=== PATIENT | female | born 1980 | race Caucasian/White ===

== ENCOUNTER 2017-09-24 20:00 | Emergency (ER) | payer BC, OTHER ==
[2017-09-24 20:16] VITALS: BP 144/84
--- NOTE | 2017-09-24 20:31 | UC ---
Lower Extremity/Ankle HPI - HPI Summary HPI Summary: Pt presents with left foot pain x 2-3weeks. No specific injury. Her pain is located at the base of her pinky toe. She tells me that she has a known benign bone growth on her ankle, but that was never painful. Denies numbness, tingling , redness, swelling, or injury. - History of Current Complaint Chief Complaint: UCLowerExtremity Stated Complaint: FOOT PAIN Time Seen by Provider: 09/24/17 20:20 Hx Obtained From: Patient Hx Last Menstrual Period: 09/03/17 Onset/Duration: Gradual Onset Severity Initially: Moderate Severity Currently: Moderate Pain Intensity: 6 Pain Scale Used: 0-10 Numeric Aggravating Factor(s): Standing, Ambulation Alleviating Factor(s): Rest - Allergies/Home Medications Allergies/Adverse Reactions: Allergies Allergy/AdvReac Type Severity Reaction Status Date / Time Sulfa (Sulfonamide Allergy Severe Anaphylatic Verified 09/24/17 20:16 Antibiotics) Shock Home Medications: Home Medications metroNIDAZOLE TAB* [Flagyl 250 mg TAB*] PO BID 09/24/17 [History] PMH/Surg Hx/FS Hx/Imm Hx Previously Healthy: Yes Other History Of: Negative For: HIV, Hepatitis B, Hepatitis C, Anticoagulant Therapy - Surgical History Surgical History: None - Family History Known Family History: Positive: Diabetes, Blood Disorder Negative: Cardiac Disease, Hypertension Family History: Blood clots in grandmother - Social History Occupation: Unemployed Lives: Alone Alcohol Use: None Substance Use Type: None Smoking Status (MU): Current Every Day Smoker Amount Used/How Often: 1 PPD Review of Systems Constitutional: Negative Skin: Negative Respiratory: Negative Cardiovascular: Negative Motor: Negative Neurovascular: Negative Musculoskeletal: Other: - LEft foot pain Neurological: Negative Psychological: Negative All Other Systems Reviewed And Are Negative: Yes Physical Exam Triage Information Reviewed: Yes Appearance: Well-Appearing, No Pain Distress, Well-Nourished Vital Signs: Initial Vital Signs Temp 98.5 F 09/24/17 20:13 Pulse 89 09/24/17 20:13 Resp 16 09/24/17 20:13 BP 144/84 09/24/17 20:13 Pulse Ox 100 09/24/17 20:13 Vital Signs Reviewed: Yes Neck: Positive: Supple, Nontender Respiratory: Positive: Lungs clear, Normal breath sounds, No respiratory distress Cardiovascular: Positive: RRR, No Murmur, Pulses Normal - Left DP and TP Musculoskeletal: Positive: Strength Intact - Left foot and all toes, ROM Intact - Left foot and all toes, No Edema - Left foot and all toes, Other: - Moderate TTP over left 5th MTP. Neurological: Positive: Alert, Other: - Sensations intact left foot and all toes. Psychological: Positive: Age Appropriate Behavior Skin: Negative: rashes Lower Extremity Course/Dx - Course Course Of Treatment: XR: IMPRESSION: Noted sessile morphology osteochondroma at the posterior distal metaphysis of. the fibula could potentially irritate the peroneal brevis tendon and account for symptoms. at level of the base of the fifth metatarsal. Correlate with clinical assessment. Advised to RICE and f /u with Orthopedics for further evaluation and treatment. - Differential Dx/Diagnosis Provider Diagnoses: Left foot pain Discharge - Discharge Plan Condition: Stable Disposition: HOME Patient Education Materials: Benign Bone Tumor (DC) Referrals: No Primary Care Phys,NOPCP [Primary Care Provider] - Harry Wright MD [Medical Doctor] - As Soon As Possible Additional Instructions: If you develop a fever, shortness of breath, chest pain, new or worsening symptoms - please call your PCP or go to the ED. Your blood pressure was high at todays visit. Please see your primary provider within 4 weeks for recheck and re-evaluation.
--- NOTE | 2017-09-24 20:45 | RAD ---
Indication: Pain at the base of the fifth metatarsal for one month without preceding injury. Comparison: No relevant prior exams available on the [facility] [place]. Technique: AP, lateral, and oblique views LEFT foot. Report: Negative for fracture, radiographic findings of stress reaction, or articular malalignment. Negative for significant arthropathic change. Small bone island at the distal diaphysis metaphysis junction of the fifth metatarsal. No abnormality at the base of the fifth metatarsal evident. 1.2 cm cephalocaudal sessile morphology osteochondroma at the posterior distal metaphysis of the fibula. Unremarkable soft tissue contours. IMPRESSION: Noted sessile morphology osteochondroma at the posterior distal metaphysis of the fibula could potentially irritate the peroneal brevis tendon and account for symptoms at level of the base of the fifth metatarsal. Correlate with clinical assessment.
== END 2017-09-24 21:25 | disposition home or self-care (01) ==
LOC: UCEAST 20:00
DX: M79.672 Pain in left foot (principal); Z88.2 Allergy status to sulfonamides; F17.210 Nicotine dependence, cigarettes, uncomplicated
CPT/HCPCS: 99212; G0463

== ENCOUNTER 2017-11-05 11:03 | Day surgery (SDC) | payer OTHER ==
[~2017-11-05 11:03] MED LIST: Acetaminophen IV 1GM/100ML * 1,000 MG/100 ML VIAL IVPB ONE; Buffered Lidocaine 0.9% SYRIN* 5 ML/SYR SYRINGE INTRADERM ONE; Dexamethasone IV* 4 MG/ML 1 ML (4 MG) IV SLOW PU ONE; Famotidine TAB* 20 MG PO ONE
[2017-11-05] MEDS ORDERED: Famotidine TAB* 20 MG ONE (11:06)
[2017-11-05] MEDS ORDERED: Dexamethasone IV* 4 MG/ML 1 ML (4 MG) ONE (11:06)
[2017-11-05] MEDS ORDERED: Buffered Lidocaine 0.9% SYRIN* 5 ML/SYR SYRINGE ONE (11:06)
[2017-11-05] MEDS ORDERED: ceFAZolin 2 GM PREMIX (*) 2 GM/50 ML BAG IVPB ONE (11:06)
[2017-11-05] MEDS ORDERED: Acetaminophen IV 1GM/100ML * 100 ML ONE (11:07)
[2017-11-05] MEDS ORDERED: Midazolam* 1 MG/ML 5 ML VIAL (5 MG) ONE (11:33)
[2017-11-05] MEDS ORDERED: Ondansetron INJ* 2 MG/ML VIAL ONE ×2 (11:39→12:15)
[2017-11-05] MEDS ORDERED: Ketorolac INJ* 30 MG/ML 1 ML VIAL ONE ×2 (11:39→12:15)
[2017-11-05] MEDS ORDERED: Bupivacaine 0.5%* 50 ML VIAL ONE (12:01)
[2017-11-05] MEDS ORDERED: ROPIVACAINE 5 MG/ML 30 ML BTL (0.5%) ONE (12:14)
[2017-11-05] MEDS ORDERED: Propofol* 10 MG/ML 20 ML BTL IV PUSH ONE (12:15)
[2017-11-05] MEDS ORDERED: Lidocaine 2% PF * 5 ML VIAL ONE (12:16)
[2017-11-05] MEDS ORDERED: fentaNYL* 50 MCG/ML 2 ML VIAL (100 MCG VIAL) ONE (12:58)
[2017-11-05] MEDS ORDERED: Ondansetron INJ* 2 MG/ML VIAL IV PRN (13:39)
[2017-11-05] MEDS ORDERED: Naloxone* 0.4 MG/ML 1 ML VIAL IV PRN (13:39)
[2017-11-05] MEDS ORDERED: EPHEDrine (Pressors)* 50 MG/ML VIAL ONE (13:46)
[2017-11-05 14:56] VITALS: BP 128/68
--- NOTE | 2017-11-05 15:35 | OP ---
Operative Report - Blank - Operative Report Date of Operation: 11/05/17 Note: PATIENT: Jenna Trinh DATE OF : 1980 DATE OF SURGERY: 11/05/2017 SURGEON: Harry Wright MD ABRASIVE WORKER: BRUCE Serrato, whos assistance was necessary for positioning, retraction, help with instrumentation, and closure. ANESTHESIOLOGIST: Dr. Alexis PREOPERATIVE DIAGNOSIS: Left distal fibula osteochondroma. Left peroneal tenosynovitis and instability. POSTOPERATIVE DIAGNOSIS: Left distal fibula osteochondroma. Left peroneal tenosynovitis and instability. OPERATION: 1. Excision of left distal fibula osteochondroma 2. Repair of dislocating left peroneal tendons with fibular groove deepening osteotomy 3. Left peroneal tendon exploration with synovectomy of peroneal tendon sheath. ANESTHESIA: GETA + popliteal nerve block IMPLANTS: none TOURNIQUET TIME: Less than one hour with a well-padded calf tourniquet at 225 mmHg SPECIMENS: Distal fibula osteochondroma to pathology ESTIMATED BLOOD LOSS: minimal COMPLICATIONS: none STATUS: Stable from the operating room to the recovery room and then home. INDICATIONS FOR PROCEDURE: Jenna has had long-standing pain and peroneal instability from her distal fibula osteochondroma. Both operative and non operative treatment alternatives were reviewed. Further, the nature and risks of surgery were reviewed in careful detail, in the office as well as the pre-operative holding area. Our discussions regarding the risks of surgery included, but were not limited to, infection, wound problems, nerve injury, neuroma, RSD, persistent symptoms, blood clot, failure of the surgery, recurrent instability and even the remote chance of catastrophic complication, including loss of limb. DESCRIPTION OF PROCEDURE: The patient was seen in the preoperative holding unit and informed written consent was obtained. The appropriate extremity was marked. The patient was then brought to the operating room and carefully positioned on the operating room table. Anesthesia was induced. All bony prominences were padded with great care. A chlorhexidine based pre-scrub was performed followed by a chloraprep prep and drape in standard sterile fashion. A surgical safety pause was then conducted in which we confirmed the appropriate patient, extremity, planned procedure, availability of equipment, indication and administration of prophylactic antibiotics, and DVT prophylaxis in the form of a compression boot on the non-surgical extremity. I began with placement of a sterile calf tourniquet 3 finger-breadths distal to the fibular neck. An Esmarch exsanguination of the limb was then performed and the tourniquet inflated. I utilized an incision overlying the peroneal tendons laterally. I carried the dissection down through the soft tissue to the level of the periosteum and superior peroneal retinaculum (SPR) with care taken to protect the sural nerve, which was not visualized during the procedure. There is a large prominence on the posterior aspect of the distal fibula. There was significant thinning of the superior peroneal retinaculum in this area. I carefully incised the SPR off of the posterior fibula to expose the peroneal tendons and osteochondroma. Dissection of the tendons was carried distally. The tendons were explored at this time for any tears. No discrete tears were appreciated but there was a large amount of inflamed tenosynovium within the tendon sheath. An extensive synovectomy was performed. Additionally, there was a low-lying peroneus brevis muscle belly which was debrided and excised. The osteochondroma was quite prominent and measured about 2 cm in length. A half-inch osteotome was used to osteotomize the osteochondroma and then it was excised and sent to pathology. I then carefully inspected the peroneal groove at the posterior aspect of the fibula. It was convex in nature. I utilized a small sagittal saw to create a longitudinal osteotomy in the fibula at the margin of the insertion of the SPR. I then utilized a bone tamp and a mallet to impact this area, deepening the groove. I took care to ensure that there were no sharp bony prominences in this area. I utilized a rasp to smooth any rough bony edges. At this point I carefully planned out the repair of the superior peroneal retinaculum. I then reduced the tendons and they sat nicely in the deepened retro-fibular groove. The wound was copiously irrigated. I repaired the SPR utilizing #1 Vicryl suture in a transosseous horizontal mattress suture pattern. I utilized multiple sutures for this repair, appropriately tensioning the SPR. I was able to pass a [place] under the repaired SPR without difficulty after the repair. We then irrigated the wound copiously again. The wound was closed in a layered fashion utilizing 3-0 Monocryl and 3-0 nylon. A sterile dressing was then applied and the ankle was splinted in a neutral position. All needle and sponge counts were correct at the end of the case. The patient was awakened from anesthesia and transferred to the recovery room in stable condition. There were no complications. ATTESTATION: I attest I was present and scrubbed and performed the critical portions of the procedure myself. POST-OPERATIVE PLAN: The patient will remain [id number] for an anticipated duration of 6 weeks. Follow up will be in 2 weeks for likely suture removal and transition into a short leg cast.
== END 2017-11-05 15:33 | disposition home or self-care (01) ==
LOC: OR 11:03
PROVIDERS: ATTEND Orthopaedic Surgery
DX: D16.22 Benign neoplasm of long bones of left lower limb (principal); M65.872 Other synovitis and tenosynovitis, left ankle and foot; M67.874 Other specified disorders of tendon, left ankle and foot; G89.18 Other acute postprocedural pain; Z72.0 Tobacco use; F19.11 Other psychoactive substance abuse, in remission
CPT/HCPCS: 81025; A9270-GY; J0690; J1100; J1885; J2250; J2405; J2704; J2795; J3010

== ENCOUNTER 2017-12-08 20:05 | Emergency (ER) | payer OTHER ==
[2017-12-08 20:18] VITALS: BP 134/82
--- NOTE | 2017-12-08 20:34 | UC ---
Bite Injury/Animal HPI - HPI Summary HPI Summary: Complains of tick bite below right gluteus with sx of headache, fatigue, feeling warm starting today. Duration of tick present in flesh unknown, found and removed today. Denies cough, sore throat, N/V, abdominal pain, joint pain, body aches, CP, SOB, change in urinary BM. Medical history is none. On depo shot - History of Current Complaint Chief Complaint: UCGeneralIllness Stated Complaint: TICK BITE Time Seen by Provider: 12/08/17 20:12 Hx Obtained From: Patient Hx Last Menstrual Period: on depo Pain Intensity: 2 Associated Signs And Symptoms: Positive: Erythema - Allergies/Home Medications Allergies/Adverse Reactions: Allergies Allergy/AdvReac Type Severity Reaction Status Date / Time Sulfa (Sulfonamide Allergy Severe Anaphylatic Verified 12/08/17 20:12 Antibiotics) Shock PMH/Surg Hx/FS Hx/Imm Hx Other History Of: Negative For: HIV, Hepatitis B, Hepatitis C, Anticoagulant Therapy - Surgical History Surgical History: Yes Surgery Procedure, Year, and Place: benign tumor removal from [facility] 11/05/2017 - Family History Known Family History: Positive: Diabetes, Blood Disorder Negative: Cardiac Disease, Hypertension Family History: Blood clots in grandmother - Social History Alcohol Use: None Alcohol Amount: 1-2 DRINKS EVERY FEW MONTHS Substance Use Type: None Smoking Status (MU): Current Every Day Smoker Type: Cigarettes Amount Used/How Often: 1 PPD Length of Time of Smoking/Using Tobacco: 18 YRS Have You Smoked in the Last Year: Yes When Did the Patient Quit Smoking/Using Tobacco: 18 YRS Household Exposure Type: Cigarettes Review of Systems Constitutional: Fatigue Skin: Rash Eyes: Negative ENT: Negative Respiratory: Negative Cardiovascular: Negative Gastrointestinal: Negative Genitourinary: Negative Motor: Negative Neurovascular: Negative Musculoskeletal: Negative Neurological: Negative Psychological: Negative Is Patient Immunocompromised?: No All Other Systems Reviewed And Are Negative: Yes Physical Exam - Summary Physical Exam Summary: Small area of erythema around the bite below the right gluteus. No indication of bull's-eye rash. No purulent drainage. Triage Information Reviewed: Yes Appearance: Well-Appearing Vital Signs: Initial Vital Signs Temp 99.3 F 12/08/17 20:13 Pulse 105 12/08/17 20:13 Resp 18 12/08/17 20:13 BP 134/82 12/08/17 20:13 Pulse Ox 99 12/08/17 20:13 Vital Signs Reviewed: Yes Eye Exam: Normal Neck exam: Normal Respiratory Exam: Normal Cardiovascular Exam: Normal Abdominal Exam: Normal Musculoskeletal Exam: Normal Neurological Exam: Normal Psychological Exam: Normal Skin Exam: Normal Bite Injury Course/Dx - Course Course Of Treatment: Tick bite for unknown period of time. Tick found and removed today by patient. Symptoms of headache, fatigue starting today. Treated with prophylactic doxycycline 200mg po here. Advised pt return for any concerning sympytoms. - Differential Dx/Diagnosis Provider Diagnoses: Tick bite Discharge - Sign-Out/Discharge Documenting (check all that apply): Discharge/Admit/Transfer - Discharge Plan Condition: Stable Disposition: HOME Patient Education Materials: Lyme Disease (ED), Tick Bite (ED) Referrals: No Primary Care Phys,NOPCP [Primary Care Provider] - Additional Instructions: Follow-up with primary care. - Billing Disposition and Condition Condition: STABLE Disposition: HOME
[2017-12-08] MEDS ORDERED: DOXYcycline CAP(*) 100 MG PO ONE (20:49)
== END 2017-12-08 21:00 | disposition home or self-care (01) ==
LOC: UCEAST 20:05
DX: S30.860A Insect bite (nonvenomous) of lower back and pelvis, initial encounter (principal); W57.XXXA Bitten or stung by nonvenomous insect and other nonvenomous arthropods, initial encounter; Y93.9 Activity, unspecified; Y92.9 Unspecified place or not applicable; R51 Headache; R53.83 Other fatigue; Z88.2 Allergy status to sulfonamides; F17.210 Nicotine dependence, cigarettes, uncomplicated
CPT/HCPCS: 99212; A9270-GY; G0463

== ENCOUNTER 2017-12-18 13:59 | Emergency (ER) | payer OTHER ==
[2017-12-18 15:32] VITALS: BP 119/82
--- NOTE | 2017-12-18 18:00 | UC ---
Throat Pain/Nasal Kanu HPI - HPI Summary HPI Summary: Patient is a 37-year-old female presenting to the with chief complaint of throat pain. Son in her home had throat pain last week but strep was negative. Denies fevers or sweats but endorses chills. She states this feels similar to her previous episodes of strep throat many years ago. Denies any abdominal pain, nausea, vomiting, diarrhea, constipation. Denies any headache. Endorses bilaterally LAD. She is not taken anything for the discomfort except for a Chloraseptic spray which is [id number]. - History of Current Complaint Chief Complaint: UCGeneralIllness Stated Complaint: SORE THROAT Time Seen by Provider: 12/18/17 16:42 Hx Obtained From: Patient Hx Last Menstrual Period: depo ?: No Onset/Duration: Sudden Onset Severity: Moderate Pain Intensity: 0 Pain Scale Used: 0-10 Numeric Associated Signs & Symptoms: Positive: Dysphagia - Epiglottits Risk Factors Epiglottis Risk Factors: Negative - Allergies/Home Medications Allergies/Adverse Reactions: Allergies Allergy/AdvReac Type Severity Reaction Status Date / Time Sulfa (Sulfonamide Allergy Severe Anaphylatic Verified 12/08/17 20:12 Antibiotics) Shock PMH/Surg Hx/FS Hx/Imm Hx Previously Healthy: Yes Other History Of: Negative For: HIV, Hepatitis B, Hepatitis C, Anticoagulant Therapy - Surgical History Surgical History: Yes Surgery Procedure, Year, and Place: benign tumor removal [facility] 11/05/2017 - Family History Known Family History: Positive: Diabetes, Blood Disorder Negative: Cardiac Disease, Hypertension Family History: Blood clots in grandmother - Social History Occupation: Employed Full-time Lives: With Family Alcohol Use: None Alcohol Amount: 1-2 DRINKS EVERY FEW MONTHS Substance Use Type: None Smoking Status (MU): Heavy Every Day Tobacco Smoker Type: Cigarettes Amount Used/How Often: 1 PPD Length of Time of Smoking/Using Tobacco: 18 YRS Have You Smoked in the Last Year: Yes When Did the Patient Quit Smoking/Using Tobacco: 18 YRS Household Exposure Type: Cigarettes Review of Systems Constitutional: Negative Skin: Negative ENT: Sore Throat Respiratory: Negative Cardiovascular: Negative Motor: Negative Neurovascular: Negative Musculoskeletal: Negative Psychological: Negative Is Patient Immunocompromised?: No All Other Systems Reviewed And Are Negative: Yes Physical Exam Triage Information Reviewed: Yes Appearance: Well-Appearing, No Pain Distress, Well-Nourished Vital Signs: Initial Vital Signs Temp 98.0 F 12/18/17 15:26 Pulse 110 12/18/17 15:26 Resp 16 12/18/17 15:26 BP 119/82 12/18/17 15:26 Pulse Ox 98 12/18/17 15:26 Vital Signs Reviewed: Yes Eye Exam: Normal Eyes: Positive: Conjunctiva Clear ENT: Positive: Pharyngeal erythema, Tonsillar swelling, Hoarse voice, Uvula midline. Negative: Tonsillar exudate, Trismus, Muffled voice, Dental tenderness , Sinus tenderness Neck exam: Normal Neck: Positive: Supple, No Lymphadenopathy Respiratory Exam: Normal Respiratory: Positive: Chest non-tender, Lungs clear Cardiovascular Exam: Normal Cardiovascular: Positive: RRR Musculoskeletal: Positive: Strength Intact Neurological Exam: Normal Neurological: Positive: Alert Psychological: Positive: Normal Response To Family Skin Exam: Normal Throat Pain/Nasal Course/Dx - Course Course Of Treatment: strep swab obtained and is positive. Patient is given penicillin twice daily x 10 days. - Differential Dx/Diagnosis Differential Diagnosis/HQI/PQRI: Pharyngitis Provider Diagnoses: Strep Throat Discharge - Sign-Out/Discharge Documenting (check all that apply): Discharge/Admit/Transfer - Discharge Plan Condition: Stable Disposition: HOME Prescriptions: Penicillin VK TAB* [Penicillin VK 250 mg Tab*] 500 mg PO BID #20 tab Patient Education Materials: Strep Throat (ED) Referrals: No Primary Care Phys,NOPCP [Primary Care Provider] - Additional Instructions: Ibuprofen 600 mg 3 times daily You may use Tylenol 650 mg 3 times daily intermittently Cepacol tabs [id number] Penicillin twice daily 10 days Wash hands frequently - Billing Disposition and Condition Condition: STABLE Disposition: HOME
== END 2017-12-18 17:12 | disposition home or self-care (01) ==
LOC: UCEAST 13:59
DX: J02.0 Streptococcal pharyngitis (principal); Z88.2 Allergy status to sulfonamides; F17.210 Nicotine dependence, cigarettes, uncomplicated
CPT/HCPCS: 87651; 99212; G0463

== ENCOUNTER 2018-08-19 20:35 | Emergency (ER) | payer BC, OTHER ==
[2018-08-19 20:54] VITALS: BP 130/75
--- NOTE | 2018-08-19 21:11 | UC ---
Shoulder Pain HPI - HPI Summary HPI Summary: 37-year-old female here with a chief complaint of left shoulder pain and laxity. 2 weeks ago which was walking her dog her dog pulled her head and she felt her left shoulder partially dislocate. She had pain immediately. Ever since that time she feels like her shoulder is much more lax and slips in and out of place. Pain is worse with movement better with rest. - History of Current Complaint Chief Complaint: UCUpperExtremity Stated Complaint: SHOULDER PAIN Time Seen by Provider: 08/19/18 20:51 Hx Last Menstrual Period: depo Pain Intensity: 7 - Allergies/Home Medications Allergies/Adverse Reactions: Allergies Allergy/AdvReac Type Severity Reaction Status Date / Time Sulfa (Sulfonamide Allergy Severe Anaphylatic Verified 08/19/18 20:54 Antibiotics) Shock Home Medications: Home Medications Escitalopram Oxalate [Lexapro 20 mg] 20 mg PO DAILY 08/19/18 [History Confirmed 08/19/18] Ibuprofen TAB* [Motrin TAB* 800 MG] 800 mg PO Q6H PRN 08/19/18 [History Confirmed 08/19/18] buPROPion SR TAB* [Wellbutrin SR TAB*] 150 mg PO BID 08/19/18 [History Confirmed 08/19/18] PMH/Surg Hx/FS Hx/Imm Hx Previously Healthy: Yes Other History Of: Negative For: HIV, Hepatitis B, Hepatitis C, Anticoagulant Therapy - Surgical History Surgical History: Yes Surgery Procedure, Year, and Place: benign tumor removal from [facility] 11/05/2017 - Family History Known Family History: Positive: Diabetes, Blood Disorder Negative: Cardiac Disease, Hypertension Family History: Blood clots in grandmother - Social History Alcohol Use: Rare Alcohol Amount: 1-2 DRINKS EVERY FEW MONTHS Substance Use Type: None Smoking Status (MU): Light Every Day Tobacco Smoker Type: Cigarettes Amount Used/How Often: 1 PPD Length of Time of Smoking/Using Tobacco: 18 YRS Have You Smoked in the Last Year: Yes When Did the Patient Quit Smoking/Using Tobacco: 18 YRS Household Exposure Type: Cigarettes Review of Systems All Other Systems Reviewed And Are Negative: Yes Constitutional: Positive: Negative Skin: Positive: Negative Eyes: Positive: Negative ENT: Positive: Negative Respiratory: Positive: Negative Cardiovascular: Positive: Negative Gastrointestinal: Positive: Negative Motor: Positive: Negative Neurovascular: Positive: Negative Musculoskeletal: Positive: Other: - SEE HPI Neurological: Positive: Negative Psychological: Positive: Negative Is Patient Immunocompromised?: No Physical Exam Triage Information Reviewed: Yes Appearance: Well-Appearing, Well-Nourished, Pain Distress - MILD WITH MOVEMENT OF LEFT SHOULDER Vital Signs: Initial Vital Signs Temp 99.2 F 08/19/18 20:49 Pulse 82 08/19/18 20:49 Resp 16 08/19/18 20:49 BP 130/75 08/19/18 20:49 Pulse Ox 97 08/19/18 20:49 Vital Signs Reviewed: Yes Eye Exam: Normal Eyes: Positive: Conjunctiva Clear Neck exam: Normal Neck: Positive: Supple, Nontender Respiratory: Positive: Lungs clear, Normal breath sounds, No respiratory distress Cardiovascular: Positive: RRR Musculoskeletal: Positive: Other: - Bilateral normal radial pulses. Normal capillary refill both arms. No sensation deficit both arms. Fingers wrist elbows have full range of motion full-strength BIlaterally. Left shoulder on examination is tender to palpation in the joint. IT also has laxity on examination. We did not attempt complete abduction and internal rotation due to the laxity. She is able to extend it 90. Neurological Exam: Normal Neurological: Positive: Alert, Muscle Tone Normal Psychological Exam: Normal Psychological: Positive: Age Appropriate Behavior Skin Exam: Normal Shoulder Course/Dx - Course Course Of Treatment: On x-ray I do not see any acute fracture there is no radiologist at this time radiologist reading is pending. I discussed this with the patient. Patient put in a sling by nursing and she is neurovascularly intact after placement was sling and the plan is to ice it's and follow-up with orthopedics. She has been taking quite a bit of ibuprofen therefore I reviewed and a prescription for naproxen twice a day to keep her nostril anti- inflammatory dosing controlled. She will not take any additional nonsteroidal anti-inflammatories. Also sent a prescription for tramadol. - Differential Dx/Diagnosis Provider Diagnosis: Left shoulder pain Discharge - Sign-Out/Discharge Documenting (check all that apply): Patient Departure All imaging exams completed and their final reports reviewed: No - Discharge Plan Condition: Stable Disposition: HOME Prescriptions: Naproxen [Naprosyn 500 mg tab] 500 mg PO BID PRN #20 tablet PRN Reason: Pain traMADol TAB* [Ultram*] 50 mg PO Q6HR PRN #20 tab MDD 4 PRN Reason: Pain Patient Education Materials: Rotator Cuff Injury (ED), Shoulder Pain (ED) Referrals: Harry Wright MD [Medical Doctor] - Additional Instructions: FOLLOW UP WITH ORTHOPEDICS. GET RECHECKED SOONER FOR ANY WORSENING OF YOUR CONDITION OR QUESTIONS OR CONCERNS. - Billing Disposition and Condition Condition: STABLE Disposition: Home
[2018-08-19] MEDS ORDERED: traMADol TAB* 50 MG PO ONE (21:37)
--- NOTE | 2018-08-20 09:00 | UC ---
- Progress Note Progress Note: wet read correct Course/Dx - Diagnoses Provider Diagnoses: Left shoulder pain Discharge - Sign-Out/Discharge Documenting (check all that apply): Post-Discharge Follow Up All imaging exams completed and their final reports reviewed: Yes - Discharge Plan Condition: Stable Disposition: HOME Prescriptions: Naproxen [Naprosyn 500 mg tab] 500 mg PO BID PRN #20 tablet PRN Reason: Pain traMADol TAB* [Ultram*] 50 mg PO Q6HR PRN #20 tab MDD 4 PRN Reason: Pain Patient Education Materials: Rotator Cuff Injury (ED), Shoulder Pain (ED) Referrals: Harry Wright MD [Medical Doctor] - Additional Instructions: FOLLOW UP WITH ORTHOPEDICS. GET RECHECKED SOONER FOR ANY WORSENING OF YOUR CONDITION OR QUESTIONS OR CONCERNS. - Billing Disposition and Condition Condition: STABLE Disposition: Home
== END 2018-08-19 21:45 | disposition home or self-care (01) ==
LOC: UCEAST 20:35
DX: M25.512 Pain in left shoulder (principal); Z88.2 Allergy status to sulfonamides; Z87.891 Personal history of nicotine dependence
CPT/HCPCS: 99213; A9270-GY; G0463

== ENCOUNTER 2019-07-25 15:53 | Emergency (ER) | payer BC ==
--- NOTE | 2019-07-25 16:01 | UC ---
Shoulder Pain HPI - HPI Summary HPI Summary: 38 yo female presents with LEFT shoulder pain. She tells me that in July 2018 she was seen here following an incident of her dog pulling on their leash and causing pt left shoulder pain. XRs were done at that time and were normal. Since that time pt has had intermittent left shoulder pain. Over the last 2-3 weeks has had more constant pain that is worse with movement, lifting, and reaching. Feels "crunching" at times. Denies numbness, tingling, or new injury. She has not seen Orthopedics for this. No PT. She is taking ibuprofen daily with no relief. On suboxone. - History of Current Complaint Stated Complaint: SHOULDER PAIN Time Seen by Provider: 07/25/19 15:59 Hx Obtained From: Patient Hx Last Menstrual Period: depo Onset/Duration: Gradual Onset Severity Initially: Severe Severity Currently: Severe Pain Intensity: 8 Pain Scale Used: 0-10 Numeric - Allergies/Home Medications Allergies/Adverse Reactions: Allergies Allergy/AdvReac Type Severity Reaction Status Date / Time Sulfa (Sulfonamide Allergy Severe Anaphylatic Verified 07/25/19 16:06 Antibiotics) Shock Home Medications: Home Medications Gabapentin 2 tab PO DAILY 07/25/19 [History Confirmed 07/25/19] PMH/Surg Hx/FS Hx/Imm Hx Psychological History: Anxiety Other History Of: Negative For: HIV, Hepatitis B, Hepatitis C, Anticoagulant Therapy - Surgical History Surgical History: Yes Surgery Procedure, Year, and Place: 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 - Family History Known Family History: Positive: Diabetes, Blood Disorder Negative: Cardiac Disease, Hypertension Family History: Blood clots in grandmother - Social History Lives: With Family Alcohol Use: Rare Alcohol Amount: 1-2 DRINKS EVERY FEW MONTHS Substance Use Type: None Smoking Status (MU): Light Every Day Tobacco Smoker Type: Cigarettes Amount Used/How Often: 1 PPD Length of Time of Smoking/Using Tobacco: 18 YRS Have You Smoked in the Last Year: Yes When Did the Patient Quit Smoking/Using Tobacco: 18 YRS Household Exposure Type: Cigarettes Review of Systems All Other Systems Reviewed And Are Negative: No Constitutional: Positive: Negative Skin: Positive: Negative Respiratory: Positive: Negative Cardiovascular: Positive: Negative Musculoskeletal: Positive: Other: - Shoulder pain Neurological: Positive: Negative Psychological: Positive: Negative Physical Exam - Summary Physical Exam Summary: GENERAL: NAD. WDWN. No pain distress. SKIN: No rashes, sores, lesions, or open wounds. CHEST: No accessory muscle use. Breathing comfortably and in no distress. CV: Pulses intact radial and ulnar. Cap refill <2seconds MSK: LEFT SHOULDER: Pain with flexion >90deg. Pain with external rotation and abduction. FROM. Strength 5/5. No edema or obvious bony deformities. Positive empty can, jimenez-karla, and gutierrez. NEURO: Alert. Sensations intact hand and all fingers. PSYCH: Age appropriate behavior. Triage Information Reviewed: Yes Vital Signs: Vital Signs: Temp Pulse Resp BP Pulse Ox 98.2 F 79 18 117/77 99 07/25/19 15:59 07/25/19 15:59 07/25/19 15:59 07/25/19 15:59 07/25/19 15:59 Vital Signs Reviewed: Yes Shoulder Course/Dx - Course Course Of Treatment: Suspect RTC tear or labrum tear. Will rx for naproxen and have her RICE her shoulder. Refer to Ortho for further eval. She has a sling at home that she can use for comfort prn. - Differential Dx/Diagnosis Provider Diagnosis: Left shoulder pain Discharge ED - Sign-Out/Discharge Documenting (check all that apply): Patient Departure All imaging exams completed and their final reports reviewed: No Studies - Discharge Plan Condition: Stable Disposition: HOME Prescriptions: Naproxen [Naproxen 500 mg tab] 500 mg PO BID PRN #30 tablet PRN Reason: Pain - Moderate Patient Education Materials: Rotator Cuff Injury (ED) Referrals: Leida Gaffney MD [Primary Care Provider] - Javier Baeza MD [Medical Doctor] - As Soon As Possible Additional Instructions: If you develop a fever, shortness of breath, chest pain, new or worsening symptoms - please call your PCP or go to the ED immediately. 1) Rest and ice your shoulder to decrease pain and inflammation 2) Start taking the naproxen instead of the ibuprofen 3) I recommend that you call Orthopedics at the number below to schedule an appointment for further evaluation of your shoulder - Billing Disposition and Condition Condition: STABLE Disposition: Home
[2019-07-25 16:06] VITALS: BP 117/77
== END 2019-07-25 16:32 | disposition home or self-care (01) ==
LOC: UCEAST 15:53
DX: M25.512 Pain in left shoulder (principal); F41.9 Anxiety disorder, unspecified; F17.210 Nicotine dependence, cigarettes, uncomplicated; Z88.2 Allergy status to sulfonamides; Z79.899 Other long term (current) drug therapy
CPT/HCPCS: 99212; G0463